=== PATIENT | male | born 1975 | race Hispanic/Latino ===

== ENCOUNTER 2025-03-24 11:23 | Emergency (ER) | payer BC, OTHER ==
[2025-03-24] MEDS ORDERED: KETOROLAC 30 MG/ML INJ ONE (12:06)
[2025-03-24 12:32] LABS: Absolute Eosinophils 0.1 K/uL (0-0.5); Absolute Lymphocytes (CBC) 2.7 K/uL (0.7-4.9); Absolute Monocytes 0.4 K/uL (0.1-1.3); Absolute Neutrophil 2.7 K/uL (1.8-8.0); Basophils % 0.4 % (0-1.3); Eosinophils % 2.1 % (0-4.4); Hematocrit 48.5 % (39.6-49.0); Lymphocytes % 45.4 % (15.3-44.8); MCH 30.6 pg (27.0-35.0); MCV 87.4 fL (80-100); MPV 8.4 fL (7.6-11.3); Monocytes % 7.2 % (3.3-12.3); Neutrophils % 44.9 % (41.7-73.7); Nucleated Red Blood Cells % 0.5 % (0-0); Platelets 208 thou/uL (152-406); RBC Red Blood Cell Count 5.55 M/uL (4.33-5.43); Red Cell Distribution Width 13.5 % (12.1-15.2)
[2025-03-24 12:52] LABS: Albumin 4.1 g/dL (3.4-5.0); Albumin/Globulin Ratio 1.1 (1.1-1.8); Anion Gap 7.4 mEq/L (5.0-15.0); Bilirubin Total 1.7 mg/dL (0.2-1.0); Globulin 3.9 g/dL (2.3-3.5)
[2025-03-24 12:55] LABS: Potassium 4.4 mEq/L (3.5-5.1)
--- NOTE | 2025-03-24 13:52 | RAD REPORT ---
EXAMINATION: Abdomen Pelvis W Contrast CLINICAL INDICATION: Male, 49 years old.ABD PAIN TECHNIQUE: CT abdomen and pelvis was performed, after the administration of IV contrast, as per [facility] protocol. Axial, sagittal and coronal reconstructions were obtained. One or more of the following dose reduction techniques were used: Automated exposure control, adjustment of the mA and/o r kV according to patient size, and/or iterative reconstruction. Unless otherwise specified, incidental findings do not require dedicated imaging follow-up. [id number]. COMPARISON: No prior exam. FINDINGS: LOWER CHEST: No acute process identified.No significant pericardial effusion. Mild circumferential th ickening of the distal esophagus which could reflect esophagitis. UPPER GI: No significant abnormality. LIVER: No significant focal abnormality. GALLBLADDER/BILE DUCTS: Cholelithiasis without CT evidence of acute cholecystitis.? PANCREAS: No mass, ductal dilation, or lety-pancreatic fluid. SPLEEN: Unremarkable. ADRENALS: No adrenal masses. KIDNEYS AND URETERS: No hydronephrosis.No suspicious renal mass.No renal calculi. ABDOMINAL AORTA AND OTHER VESSELS: Mild atherosclerotic changes. PERITONEUM: No abnormal free fluid. No free air. LYMPH NODES: No pathologic lymphadenopathy. ABDOMINAL WALL: Unremarkable SMALL BOWEL/COLON: Small bowel has normal course and caliber. No colonic wall thickening or pericolon ic inflammatory changes.Normal appendix. Mild diverticulosis without diverticulitis. URINARY BLADDER: Underdistended but grossly unremarkable. REPRODUCTIVE ORGANS: No pathologic process. MUSCULOSKELETAL: No acute or suspicious osseous abnormality. ADDITIONAL FINDINGS: None. IMPRESSION: No acute findings within the abdomen or pelvis. No appendicitis. Cholelithiasis without CT evidence of acute cholecystitis.
--- NOTE | 2025-03-24 14:01 | ER ---
Nurse's Notes [facility] Name: Anthony Suarez Age: 49 yrs Sex: Male : 1975 Arrival Date: 03/24/2025 Time: 11:23 Bed 16 Private MD: Diagnosis: Lower abdominal pain, unspecified Presentation: 03/24 11:47 Chief complaint: Patient states: LLQ abdominal pain for a long time but worse this jl7 morning, denies N/V/D. Coronavirus screen: At this time, the client does not indicate any symptoms associated with coronavirus-19. Ebola Screen: No symptoms or risks identified at this time. Initial Sepsis Screen: Does the patient meet any 2 criteria? No. Patient's initial sepsis screen is negative. Does the patient have a suspected source of infection? No. Patient's initial sepsis screen is negative. Risk Assessment: Do you want to hurt yourself or someone else? Patient reports no desire to harm self or others. Onset of symptoms is unknown. 11:47 Method Of Arrival: Ambulatory jl7 11:47 Acuity: VONNIE 3 jl7 Triage Assessment: 11:49 General: Appears in no apparent distress. uncomfortable, Behavior is calm, cooperative, jl7 appropriate for age. Pain: Complains of pain in left lower quadrant Pain currently is 3 out of 10 on a pain scale. Historical: - Allergies: 11:49 No Known Allergies; jl7 - Home Meds: 11:49 None [Active]; jl7 - PMHx: 11:49 None; jl7 - PSHx: 11:49 None; jl7 - Immunization history:: Adult Immunizations unknown. - Infectious Disease History:: Denies. - Social history:: Smoking status: Patient denies any tobacco usage or history of. Screenin:32 [facility] ED Fall Risk Assessment (Adult) History of falling in the last 3 months, cm10 including since admission No falls in past 3 months (0 pts) Confusion or Disorientation No (0 pts) Intoxicated or Sedated No (0 pts) Impaired Gait No (0 pts) Mobility Assist Device Used No (0 pt) Altered Elimination No (0 pt) Score/Fall Risk Level 0 - 2 = Low Risk Oriented to surroundings, Maintained a safe environment, Hourly rounding (assess needs \T\ fall precautionary measures) done. Abuse screen: Denies threats or abuse. Denies injuries from another. Nutritional screening: No deficits noted. Tuberculosis screening: No symptoms or risk factors identified. Assessment: 12:31 General: Appears in no apparent distress. comfortable, Behavior is calm, cooperative. cm10 Pain: Complains of pain in left lower quadrant Pain does not radiate. Pain currently is 3 out of 10 on a pain scale. Pain began weeks ago Is intermittent. Neuro: No deficits noted. Level of Consciousness is awake, alert, obeys commands, Oriented to person, place, time, situation, Appropriate for age. Respiratory: No deficits noted. Airway is patent Respiratory effort is even, unlabored, Respiratory pattern is regular, symmetrical. GI: Reports lower abdominal pain. 13:06 Reassessment: Patient appears in no apparent distress at this time. Patient and/or cm10 family updated on plan of care and expected duration. Pain level reassessed. Patient is alert, oriented x 3, equal unlabored respirations, skin warm/dry/pink. Patient states symptoms have improved. Vital Signs: 11:47 BP 146 / 91; Pulse 72; Resp 17; Temp 98.2; Pulse Ox 100% ; Weight 74.84 kg; Height 5 jl7 ft. 8 in. ; Pain 3/10; 12:30 BP 120 / 86; Pulse 61; Resp 15; Pulse Ox 97% ; cm10 13:00 BP 110 / 74; Pulse 63; Resp 15; Pulse Ox 96% on R/A; cm10 14:00 BP 149 / 99; Pulse 59; Resp 15; Pulse Ox 98% on R/A; cm10 11:47 Body Mass Index 25.09 (74.84 kg, 172.72 cm) jl7 11:47 Pain Scale: Adult jl7 ED Course: 11:27 Patient arrived in ED. mr 11:28 Raul Arvizu DO is Attending Physician. ms3 11:49 Triage completed. jl7 11:49 Arm band placed on right wrist. jl7 11:56 Etelvina Lopez, RN is Primary Nurse. cm10 12:22 CBC with Diff Sent. cm10 12:22 CMP Sent. cm10 12:22 Lipase Sent. cm10 12:22 Initial lab(s) drawn, by nd, sent to lab. Missed attempt(s): 20 gauge in left cm10 antecubital area. Bleeding controlled, band aid applied, catheter tip intact. 12:27 Inserted saline lock: 22 gauge in right antecubital area, using aseptic technique. ap3 Flushed with 10 mL NS. 12:32 Patient has correct armband on for positive identification. Bed in low position. Call cm10 light in reach. Side rails up X 1. Provided Education on: ER process and procedures. Pulse ox on. NIBP on. 13:20 CT Abd/Pelvis - IV Contrast Only In Process Unspecified. EDMS 14:00 Scooter Anguiano MD is Referral Physician. ms3 14:12 No provider procedures requiring assistance completed. IV discontinued, intact, cm10 bleeding controlled, No redness/swelling at site. Pressure dressing applied. Administered Medications: 12:30 Drug: TORadol - Ketorolac IVP 15 mg IVP once Route: IVP; Site: right antecubital; cm10 13:03 Follow up: Response: No adverse reaction; Pain is decreased cm10 Medication: 12:31 VIS not applicable for this client. cm10 Outcome: 14:00 Discharge ordered by . ms3 14:12 Discharged to home ambulatory, cm10 14:12 Condition: good 14:12 Discharge instructions given to patient, Instructed on discharge instructions, follow up and referral plans. medication usage, Demonstrated understanding of instructions, follow-up care, medications, Prescriptions given X 1, 14:13 Patient left the ED. cm10 Signatures: Dispatcher [employer] EDME Jaylyn Roberts, Reg Reg mr DouglassAdilia, RN RN jl7 Sowmya Glover RN RN [id number] Raul Arvizu DO DO ms3 Etelvina Lopez RN RN cm10
--- NOTE | 2025-03-24 14:01 | EDPHYS ---
Physician Documentation [facility] Name: Anthony Suarez Age: 49 yrs Sex: Male : 1975 Arrival Date: 03/24/2025 Time: 11:23 Bed 16 Private MD: ED Physician Raul Arvizu HPI: 03/24 13:42 This 49 yrs old Male presents to ER via Ambulatory with complaints of Low Back ms3 Pain. 13:42 49-year-old male with no past medical history presents to the emergency department for ms3 left lower quadrant abdominal pain that is been ongoing for 2 weeks. Patient states pain is 3/10. Patient denies nausea, vomiting, diarrhea, fevers, chills. Historical: - Allergies: 11:49 No Known Allergies; jl7 - Home Meds: 11:49 None [Active]; jl7 - PMHx: 11:49 None; jl7 - PSHx: 11:49 None; jl7 - Immunization history:: Adult Immunizations unknown. - Infectious Disease History:: Denies. - Social history:: Smoking status: Patient denies any tobacco usage or history of. ROS: 13:42 Constitutional: Negative for fever, and chills. Cardiovascular: Negative for chest ms3 pain, and palpitations. Respiratory: Negative for shortness of breath, cough, wheezing, and pleuritic chest pain, 13:42 Skin: Negative for injury, rash, and discoloration, 13:42 Abdomen/GI: Positive for abdominal pain, Exam: 13:42 Constitutional: This is a well developed, well nourished patient who is awake, alert, ms3 and in no acute distress. Cardiovascular: Regular rate and rhythm with a normal S1 and S2. No gallops, murmurs, or rubs. Normal PMI, no JVD. No pulse deficits. Respiratory: Lungs have equal breath sounds bilaterally, clear to auscultation and percussion. No rales, rhonchi or wheezes noted. No increased work of breathing, no retractions or nasal flaring. Skin: Warm, dry with normal turgor. Normal color with no rashes, no lesions, and no evidence of cellulitis. 13:42 Abdomen/GI: Inspection: abdomen appears normal, Bowel sounds: normal, Palpation: moderate abdominal tenderness, in the left lower quadrant, Vital Signs: 11:47 BP 146 / 91; Pulse 72; Resp 17; Temp 98.2; Pulse Ox 100% ; Weight 74.84 kg; Height 5 jl7 ft. 8 in. ; Pain 3/10; 12:30 BP 120 / 86; Pulse 61; Resp 15; Pulse Ox 97% ; cm10 13:00 BP 110 / 74; Pulse 63; Resp 15; Pulse Ox 96% on R/A; cm10 14:00 BP 149 / 99; Pulse 59; Resp 15; Pulse Ox 98% on R/A; cm10 11:47 Body Mass Index 25.09 (74.84 kg, 172.72 cm) jl7 11:47 Pain Scale: Adult jl7 MDM: 11:43 Medical Screening Exam initiated ms3 13:42 Differential diagnosis: Diverticulitis versus abdominal pain versus kidney stone. ms3 16:47 Data reviewed: vital signs, nurses notes, lab test result(s), radiologic studies, and ms3 as a result, I will discharge patient. I considered the following discharge prescriptions or medication management in the emergency department Medications were administered in the Emergency Department. See MAR. Counseling: I had a detailed discussion with the patient and/or guardian regarding the historical points, exam findings, and any diagnostic results supporting the discharge/admit diagnosis, lab results, radiology results, the need for outpatient follow up, to return to the emergency department if symptoms worsen or persist or if there are any questions or concerns that arise at home. Special discussion: Based on the patient's Hx, exam, and Dx evaluation, there is no indication for emergent surgery or inpatient Tx. It is understood by the patient/guardian that if the Sx's persist or worsen they need to return immediately for re-evaluation. ED course: Discussed labs and CT findings with patient. Patient to follow-up with primary care physician gastroenterology in 2 to 3 days. Patient understands agrees with plan. All questions were answered. Return precautions discussed include worsening symptoms, or any other concerns. On reevaluation patient's abdomen benign, patient is alert and orient x 4, no apparent distress, nontoxic-appearing, speaking full sentences.. 03/24 12:06 Order name: CBC with Diff; Complete Time: 13:01 ms3 03/24 12:06 Order name: CMP; Complete Time: 13: ms3 03/24 12:06 Order name: Lipase; Complete Time: 13:01 ms3 03/24 12:06 Order name: CT Abd/Pelvis - IV Contrast Only; Complete Time: 13:54 ms3 03/24 12:06 Order name: IV Saline Lock; Complete Time: 12:27 ms3 03/24 12:06 Order name: Labs collected and sent; Complete Time: 12:22 ms3 Administered Medications: 12:30 Drug: TORadol - Ketorolac IVP 15 mg IVP once Route: IVP; Site: right antecubital; cm10 13:03 Follow up: Response: No adverse reaction; Pain is decreased cm10 Disposition Summary: 03/24/25 14:00 Discharge Ordered Notes: Location: Home ms3 Condition: Stable ms3 Diagnosis - Lower abdominal pain, unspecified ms3 Followup: ms3 - With: Scooter Anguiano MD - When: 2 - 3 days - Reason: Recheck today's complaints Discharge Instructions: - Discharge Summary Sheet ms3 - Abdominal Pain, Adult ms3 Forms: - Medication Reconciliation Form ms3 - Antibiotic Education ms3 - Prescription Opioid Use ms3 - Patient Portal Instructions ms3 - Leadership Thank You Letter ms3 Prescriptions: - dicyclomine 10 mg Oral capsule - take 1 capsule ORAL route 3 times per day; 20 capsule; Refills: 0, Product ms3 Selection Permitted Signatures: Dispatcher [employer] EDAdilia Stewart, RN RN jl7 Raul Arvizu DO DO ms3 Etelvina Lopez, RN RN cm10 Corrections: (The following items were deleted from the chart) 12:06 12:06 CBC+H.LAB.BRZ ordered. EDMS EDMS 12:06 12:06 COMPREHENSIVE METABOLIC PANEL+C.LAB.BRZ ordered. EDMS EDMS 12:06 12:06 LIPASE+C.LAB.BRZ ordered. EDMS EDMS 12:06 12:06 Abdomen Pelvis W Con+CT.RAD.BRZ ordered. EDMS EDMS
[2025-03-24 14:44] VITALS: TEMP 98.2
[2025-03-24 14:50] VITALS: BP 149/99; O2SAT 98
== END 2025-03-24 14:13 | disposition home or self-care (01) ==
LOC: ER 11:23
DX: R10.32 Left lower quadrant pain (principal); M54.50 Low back pain, unspecified
CPT/HCPCS: 85025; 36415; 83690; 80053; 74177; 96374; 99284; Q9967